=== PATIENT | male | born 1990 | race Caucasian/White ===

== ENCOUNTER 2017-07-08 11:05 | Emergency (ER) | payer SELFPAY ==
[~2017-07-08] VITALS: Ht 182.9 cm; Wt 86.1 kg
[2017-07-08 11:07] VITALS: BP 129/90
[2017-07-08] MEDS ORDERED: AZITHROMYCIN 250 MG TABLET ONE (11:23)
[2017-07-08] MEDS ORDERED: CEFTRIAXONE 250 MG ONE (11:23)
[2017-07-08] MEDS ORDERED: CEFTRIAXONE 250 MG IM ONE (11:30)
[2017-07-08] MEDS ORDERED: AZITHROMYCIN 500 MG TABLET PO ONE (11:30)
== END 2017-07-08 11:50 | disposition home or self-care (01) ==
LOC: ED 11:36
DX: A60.00 Herpesviral infection of urogenital system, unspecified (principal); Z20.2 Contact with and (suspected) exposure to infections with a predominantly sexual mode of transmission
CPT/HCPCS: 87491; 87591; 96372; 99284; J0696

== ENCOUNTER 2018-08-15 08:25 | Emergency (ER) | payer MEDICAID ==
[~2018-08-15] VITALS: Ht 185.4 cm; Wt 84.0 kg
[2018-08-15 08:33] VITALS: BP 134/70
[2018-08-15] MEDS ORDERED: LORazepam 2 MG/ML, 1ML IVPush ONE (09:00)
== END 2018-08-15 09:02 | disposition home or self-care (01) ==
LOC: ED 08:48
DX: F19.94 Other psychoactive substance use, unspecified with psychoactive substance-induced mood disorder (principal); F19.129 Other psychoactive substance abuse with intoxication, unspecified; F15.10 Other stimulant abuse, uncomplicated; F17.200 Nicotine dependence, unspecified, uncomplicated
CPT/HCPCS: 99283

== ENCOUNTER 2018-10-21 08:45 | Emergency (ER) | payer MEDICAID ==
[~2018-10-21] VITALS: Ht 182.9 cm; Wt 85.0 kg
[2018-10-21 08:49] VITALS: BP 138/84
== END 2018-10-21 09:13 | disposition home or self-care (01) ==
LOC: ED 09:07
DX: J01.00 Acute maxillary sinusitis, unspecified (principal); B30.9 Viral conjunctivitis, unspecified
CPT/HCPCS: 99283

== ENCOUNTER 2019-02-13 18:26 | Emergency (ER) | payer MEDICAID ==
[~2019-02-13] VITALS: Ht 182.9 cm; Wt 82.1 kg
[2019-02-13] MEDS ORDERED: LIDOCAINE-MPF 1%, 5ML ONE (18:44)
[2019-02-13] MEDS ORDERED: CEFAZOLIN 1,000 MG ONE (19:12)
[2019-02-13] MEDS ORDERED: LIDOCAINE-MPF 1%, 5ML INFIL ONE (19:30)
[2019-02-13] MEDS ORDERED: CEFAZOLIN 1,000 MG IM ONE (19:30)
--- NOTE | 2019-02-13 19:48 | NUR ---
PT ATTEMPTED TO D/C AND BECOME PROFUSELY SWEATY AND STATED HIS ARM WAS HURTING. WOULD LIKE TO STAY IN ROOM TO RECOVER AFTER PROCEDURE.
[2019-02-13 19:53] VITALS: BP 148/70
== END 2019-02-13 20:07 | disposition home or self-care (01) ==
LOC: ED 19:06
DX: L02.414 Cutaneous abscess of left upper limb (principal)
CPT/HCPCS: 10060; 96372; 99283; J0690

== ENCOUNTER 2020-12-18 10:56 | Emergency (ER) | payer MEDICAID ==
[~2020-12-18] VITALS: Ht 182.9 cm; Wt 85.9 kg
--- NOTE | 2020-12-18 11:21 | NUR ---
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 Pt denies use of medications regularly at home for med rec. Waiting on MD exam and covid swab.
--- NOTE | 2020-12-18 11:54 | NUR ---
PA at bedside for Covid swab and exam at this time. VS reassessed and pt denies change in c/o.
[2020-12-18 12:11] VITALS: BP 124/83
== END 2020-12-18 12:13 | disposition home or self-care (01) ==
LOC: ED 11:35
DX: R06.02 Shortness of breath (principal); Z20.822 Contact with and (suspected) exposure to COVID-19
CPT/HCPCS: 99283; U0003